=== PATIENT | female | born 1950 | race Caucasian/White ===

== ENCOUNTER → 2018-04-15 | Day surgery (SDC) | payer OTHER ==
[~2018-04-15] VITALS: Ht 162.6 cm; Wt 70.8 kg
--- NOTE | 2018-04-15 14:33 | Operative Report ---
Operative/Inv Procedure Report Surgery Date: 04/15/18 Name of Procedure: Left knee arthroscopy, partial medial meniscectomy Pre-Operative Diagnosis: Left knee medial meniscus tear Post-Operative Diagnosis: Left knee medial meniscus tear Estimated Blood Loss: scant Surgeon/Blood Bank Custodian: Tae Meza MD Anesthesia: laryngeal mask airway, block Complications: None Condition: Stable to PACU Operative Indication: This is a 67-year-old female with left knee pain that has failed conservative care. MRI showed a medial meniscus tear. Risks and benefits of the procedure were discussed with the patient at length. Risks include but are not limited to nerve damage, muscle damage, infection, blood loss, blood clots, pulmonary embolus, and even . The patient agreed to the above risks and elected to proceed with surgery. Operative/Procedure Note Note: The patient was placed supine on the operating room table. A tourniquet was applied. The lower extremity was prepped and draped in normal sterile fashion. A timeout was performed before the incision. The site marking was visualized before incision. After the leg was prepped and draped, an Esmarch was used to exsanguinate the extremity. The tourniquet was inflated. A standard inferolateral portal was established with an 11 blade. The camera was inserted. A medial portal was established with a spinal needle and an 11 blade. The diagnostic arthroscopy was then performed which showed the above findings. A combination of a straight biter as well as upbiter were used to debride the medial meniscus back to a stable rim of cartilage. The posterior horn as well as root were debrided. The shaver was used to complete the debridement. The knee was copiously irrigated. The portal sites were closed with 3-0 nylon suture in a simple interrupted fashion. The knee was injected with 10 mL of 0.25% Marcaine with epinephrine. A dry sterile dressing was applied and the patient was transferred to PACU in stable condition. Findings: Complex tear of the posterior horn and root of the medial meniscus. Medial femoral condyle with grade 1 chondral softening. Medial tibial plateau with grade 1 chondral softening. ACL intact. PCL intact. Lateral compartment articular cartilage with Grade 1 chondral softening of the lateral femoral condyle lateral tibial plateau. Lateral meniscus intact. Grade 4 chondral changes on the undersurface of the patella as well as trochlea. No loose bodies noted.
== END ==
LOC: STS 05:16
DX: S83.232A Complex tear of medial meniscus, current injury, left knee, initial encounter (principal); X58.XXXA Exposure to other specified factors, initial encounter; I48.0 Paroxysmal atrial fibrillation; K21.9 Gastro-esophageal reflux disease without esophagitis; M19.90 Unspecified osteoarthritis, unspecified site
CPT/HCPCS: J0131; J0690; J2250